=== PATIENT | female | born 1985 | race Caucasian/White ===

== ENCOUNTER 2016-10-08 14:06 | Emergency (ER) | payer BC ==
[2016-10-08 15:28] VITALS: BP 129/80
[2016-10-08] MEDS ORDERED: Tetan/Diph/Pertus SYR(Tdap)* 0.5 ML SYR(BOOSTRIX) use SYR IM ONE (15:36)
--- NOTE | 2016-10-08 15:45 | UC ---
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 took ibuprofen with good relief, was worried because she has not a tetanus. she is able to open and close her mouth without difficulty. - History of Current Complaint Chief Complaint: UCGeneralIllness Stated Complaint: JAW PAIN Time Seen by Provider: 10/08/16 15:25 Hx Obtained From: Patient Onset/Duration: Sudden Onset, Lasting Hours Timing: Constant Onset Severity: Moderate Current Severity: Mild - Allergy/Home Medications Allergies/Adverse Reactions: Allergies Allergy/AdvReac Type Severity Reaction Status Date / Time No Known Allergies Allergy Verified 10/08/16 15:28 PMH/Surg Hx/FS Hx/Imm Hx Previously Healthy: Yes - Surgical History Surgical History: Yes Surgery Procedure, Year, and Place: R knee. APPY 12/2014. wisdom teeth - Family History Known Family History: Positive: Hypertension - Social History Alcohol Use: Occasionally Substance Use Type: None Smoking Status (MU): Never Smoked Tobacco Have You Smoked in the Last Year: No Review of Systems Constitutional: Negative Skin: Negative Eyes: Negative ENT: Negative Respiratory: Negative Cardiovascular: Negative Gastrointestinal: Negative Genitourinary: Negative Motor: Decreased ROM - in jaw Neurovascular: Negative Musculoskeletal: Negative Neurological: Negative Psychological: Negative All Other Systems Reviewed And Are Negative: Yes Physical Exam Triage Information Reviewed: Yes Appearance: Well-Appearing, Well-Nourished, Pain Distress Vital Signs: Initial Vital Signs Temp 97.4 F 10/08/16 15:21 Pulse 78 10/08/16 15:21 Resp 16 10/08/16 15:21 BP 129/80 10/08/16 15:21 Pulse Ox 100 10/08/16 15:21 Vital Signs Reviewed: Yes Eye Exam: Normal Eyes: Positive: Conjunctiva Clear ENT Exam: Normal ENT: Positive: Hearing grossly normal, Pharynx normal, TM bulging Dental Exam: Normal Neck exam: Normal Neck: Positive: Supple, Nontender, No Lymphadenopathy Respiratory Exam: Normal Respiratory: Positive: Chest non-tender, Lungs clear, Normal breath sounds Cardiovascular Exam: Normal Cardiovascular: Positive: RRR, No Murmur, Brisk Capillary Refill Abdominal Exam: Normal Abdomen Description: Positive: Nontender, No Organomegaly, Soft Bowel Sounds: Positive: Present Musculoskeletal Exam: Normal Musculoskeletal: Positive: Strength Intact, ROM Intact, No Edema Neurological Exam: Normal Neurological: Positive: Alert, Muscle Tone Normal Psychological Exam: Normal Skin Exam: Normal Course/Dx - Course Course Of Treatment: hx obtained, exam performed, meds reviewed, advil taken prior to arrival. tetanus booster given, educated on care of TMJ - Differential Dx - Multi-Symptom Provider Diagnoses: TMJ. serous otitis, bilateral Discharge - Discharge Plan Condition: Stable Disposition: HOME Patient Education Materials: Serous Otitis Media (ED), Temporomandibular Disorder (ED) Additional Instructions: 1. continue with Advil as needed, 2. Warm compresses to both sides of jaw for muscle relief, 3. Massage the area as demonstrated if tightness persists.
== END 2016-10-08 15:53 | disposition home or self-care (01) ==
LOC: UCCORT 14:06
DX: M26.609 Unspecified temporomandibular joint disorder, unspecified side (principal); H65.93 Unspecified nonsuppurative otitis media, bilateral; Z23 Encounter for immunization
CPT/HCPCS: 90471; 90715; 99211; G0463